=== PATIENT | female | born 1950 | race Caucasian/White ===

== ENCOUNTER 2019-04-10 17:15 | Emergency (ER) | payer MEDICARE ==
--- NOTE | 2019-04-10 18:18 | Emergency Department Record ---
History of Present Illness - General Chief Complaint: Difficulty Breathing Stated Complaint: POSSIBLE PE Time Seen by Provider: 04/10/19 18:13 Source: Patient Mode of Arrival: Ambulatory Limitations: No limitations - History of Present Illness Initial Comments: Pt to the ED with 9 days of upper shoulder and neck tightness with generalized/frontal headache. No fever. No trauma or overuse. No visual changes. No CP or MALATHI. Pt with HX of PE years ago, off anticoag per doctors orders for 6 month. Extensive medical hx of autoimmune issues. Onset/Timin -: Week(s) Radiation: Back, Jaw, Neck, Left arm, Right arm Severity: Moderate Severity scale (1-10): 3 Consistency: Intermittent Improves With: Rest Worsens With: Exertion, Inspiration, Movement Known History Of: Other Associated Symptoms: Chest pain, Cough, Nausea/vomiting, Pain with inspiration Treatment Prior to Arrival Comment:: tylenol - Related Data Previous Rx's Medication Instructions Recorded Diazepam [Valium] 5 mg PO Q8H 4 Days #10 tab 04/10/19 Fluticasone Propionate [Flonase] 2 spray EACH NARES DAILY 7 Days #1 04/10/19 bottle Ibuprofen [Motrin 600Mg] 600 mg PO Q6H 7 Days #40 tablet 04/10/19 Allergies Allergy/AdvReac Type Severity Reaction Status Date / Time No Known Allergies Allergy PT UNSURE Unverified 04/10/19 17:32 OF REACTION Travel Screening - Travel/Exposure Within Last 30 Days Have you traveled within the last 30 days?: No Review of Systems Constitutional: Denies: Chills, Fever, Weakness Eyes: Denies: Eye discharge, Photophobia ENT: Denies: Congestion Respiratory: Denies: Cough, Hemoptysis Cardiovascular: Denies: Arrhythmia, Chest pain, Dyspnea on exertion, Palpitations, Syncope Endocrine: Denies: Fatigue, Polydipsia Gastrointestinal: Denies: Abdominal pain, Diarrhea, Nausea, Vomiting Musculoskeletal: Reports: As per HPI Skin: Denies: Rash Neurological: Reports: Headache. 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 - CARDIOVASCULAR Hx Cardio Disorders: Yes Hx Irregular Heartbeat: Yes (afib) Hx Pacemaker/Defib: Yes - NEURO Hx Neuro Disorders: Yes Comment:: up's granuloma auto immune - GI Hx GI Disorders: No - Hx Genitourinary Disorders: No - ENDOCRINE Hx Endocrine Disorders: No - MUSCULOSKELETAL Hx Musculoskeletal Disorders: No - PSYCH Hx Psych Problems: No - HEMATOLOGY/ONCOLOGY Hx Hematology/Oncology Disorders: No Family Medical History Any Significant Family History?: Yes Hx Cancer: Father, Mother *Cancer Comment: lung Hx Heart Disease: Father, Mother, Brother/Sister Physical Exam - General General Appearance: Alert, Oriented x3, Cooperative, Mild distress - Head Head exam: Atraumatic - Eye Eye exam: Normal appearance, PERRL, EOMI - ENT ENT exam: Normal exam, Mucous membranes moist, Normal external ear exam, Normal orophraynx, TM's normal bilaterally, Other (sinus pressure to maxillar sinus bilateral) - Neck Neck exam: Tenderness (spasmto cervial muscle and live upper trap and rhomboids. Guards motion into rotation , flexion, extension. ) - Respiratory Respiratory exam: Normal lung sounds bilaterally. negative: Respiratory distress - Cardiovascular Cardiovascular Exam: Regular rate, Normal rhythm. negative: Tachycardia - GI/Abdominal GI/Abdominal exam: Soft, Normal bowel sounds. negative: Tenderness - Extremities Extremities exam: Normal inspection - Back Back exam: Reports: Paraspinal tenderness (upper thoracic spine spasm. ) - Neurological Neurological exam: Alert, Normal gait, Oriented X3 - Psychiatric Psychiatric exam: Normal affect, Normal mood - Skin Skin exam: Normal color. negative: Rash Course Vital Signs 04/10/19 17:33 Temperature 98.7 F Pulse Rate 82 Respiratory 16 Rate Blood Pressure 121/77 Pulse Ox 95 - Reevaluation(s) Reevaluation #1: 04/10/19 18:41 Seen from with concern for PE. PT without hx or exam consistent. Has severe spasmotic torticollis and upper back spasms. Web pressure to thumbs with instant relief of spasma nd pains leading to increased ROM of neck into rot and flex/ext. Pt aware of plan for home. Will treat sinusitis also. Procedures - EKG Initial Date: 04/10/19 Time: 17:42 EKG: Normal EKG Disposition Disposition: Discharge Clinical Impression: Muscle spasms of neck, Tension type headache Sinusitis Qualifiers: Sinusitis location: frontal Chronicity: acute Recurrence: not specified as recurrent Qualified Code(s): J01.10 - Acute frontal sinusitis, unspecified Disposition: Home, Self-Care Condition: (2) Stable Instructions: Sinusitis (ED), Spasmodic Torticollis (ED), Muscle Spasm (ED) Additional Instructions: Accupressure technique as instructed. Warm shower the ice to area. Family doctor in 3 days Return to the ED as needed. Prescriptions: Fluticasone Propionate [Flonase] 2 spray EACH NARES DAILY 7 Days #1 bottle Ibuprofen [Motrin 600Mg] 600 mg PO Q6H 7 Days #40 tablet Diazepam [Valium] 5 mg PO Q8H 4 Days #10 tab Forms: Patient Portal Access Time of Disposition: 18:18 Quality - Quality Measures Quality Measures: N/A, Headache (All Ages) - Headache: Neuroimaging Quality Measure: Measure #419: Overuse of Neuroimaging ICD10 Codes Entered: Yes Neurological Exam: Patient had a normal neurological exam. [G9535] Headache: Use of Neuroimaging: < CTA, CT, MRA or MRI was NOT ordered > [G9534] - Blood Pressure Screening Does Patient Have Any of the Following: No Blood Pressure Classification: Pre-Hypertensive BP Reading Systolic Measurement: 120 Diastolic Measurement: 72 Screening for High Blood Pressure: < Pre-Hypertensive BP, F/U Documented > [G8950] Pre-Hypertensive Follow-up Interventions: Follow-up with rescreen every year.
== END 2019-04-10 18:35 | disposition home or self-care (01) ==
LOC: ER 17:15
DX: G24.3 Spasmodic torticollis (principal); J01.10 Acute frontal sinusitis, unspecified; R05 Cough; R52 Pain, unspecified; K13.79 Other lesions of oral mucosa; I48.91 Unspecified atrial fibrillation; M31.30 Wegener's granulomatosis without renal involvement; R51 Headache; Z95.0 Presence of cardiac pacemaker
CPT/HCPCS: 71046; 93005; 93010; 99284